=== PATIENT | female | born 2000 | race Hispanic/Latino ===

== ENCOUNTER 2022-10-14 11:43 | Emergency (ER) | payer BC, MEDICAID, SELFPAY ==
--- NOTE | ~2022-10-14 | XR_ITS ---
AP view of the pelvis and AP and lateral views of the right hip Clinical history: Pain Findings: No acute fracture or dislocation is seen. Osseous alignment is anatomic. Bilateral hip and SI joint spaces are preserved. Soft tissues are unremarkable. Impression: No significant abnormality is seen. Reviewed, dictated and finalized at [facility]. OR TECHNICIAN Impression: No significant abnormality is seen.
--- NOTE | ~2022-10-14 | XR_ITS ---
Lumbosacral Spine: AP, oblique, and lateral views Clinical History: Pain Findings: The normal lordotic curve is maintained. The vertebral bodies and posterior elements are i ntact. The intervertebral disc spaces are preserved. The sacroiliac joints are normally outlined. Impression: No significant abnormality. Reviewed, dictated and finalized at [facility]. N ANNOUNCER Impression: No significant abnormality.
[2022-10-14 11:48] VITALS: BP 109/56; PULSE 103; RESP 16; TEMP 36.8; O2SAT 100
--- NOTE | 2022-10-14 12:49 | ED.GENADULT ---
HPI - General Adult General Chief complaint: Extremity Injury, Lower Stated complaint: right hip pain after fall 2 days ago Time Seen by Provider: 10/14/22 12:24 Source: RN notes reviewed History of Present Illness HPI narrative: Patient presents emergency department from home for fall. Patient states symptoms occurred on the evening of October 11 patient states that she is coming on the stairs when her dog jumped up behind her causing her to fall down 3 stairs states that she hit her right hip on a bookshelf since that time she had pain in the right lateral hip as well as in the right buttocks and lower back states she has been able to ambulate she denies striking her head or any loss of consciousness she denies any chest pain shortness of breath abdominal pain nausea vomiting numbness or tingling in the extremities pain in the knee or ankle or any other symptoms states she is not taking thing for pain Related Data Allergies Allergy/AdvReac Type Severity Reaction Status Date / Time shrimp Allergy Anaphylaxis Verified 10/14/22 13:11 Sulfa (Sulfonamide Allergy Hives Verified 10/14/22 13:11 Antibiotics) Review of Systems Review of Systems: Gen.: Denies fevers or chills Eyes: Denies eye pain or visual change ENT: Denies facial Respiratory: Denies shortness of breath CV: Denies chest pain GI: Denies abdominal pain nausea, emesis Musculoskeletal: See HPI Neuro: Denies headache or loss of consciousness Skin: Denies rash Except as documented, all other systems reviewed and negative PMFSH Past Medical History Medical History (Updated 10/14/22 @ 13:34 by Rishi Cali DO) Patient denies significant medical history Social History Social History (Updated 10/14/22 @ 12:51 by Rishi Cali DO) Smoking status: Never smoker Exam Narrative: APPEARANCE: Well appearing, no apparent distress, well-nourished. HEENT: normocephalic atraumtaic. Nares patent, oral mucosa moist EYES: PERRL NECK: Supple. No midline tenderness to palpation. Full range of motion without pain RESPIRATORY: No respiratory distress. Clear to auscultation bilaterally CARDIOVASCULAR: Regular rate and rhythm without murmurs rubs or gallops. ABDOMINAL: Soft, nontender, nondistended, no rebound or guarding MUSCULOSKELETAl: Moves all extremities. No tenderness to palpation of bilateral upper and lower extremities. No clubbing cyanosis or edema Back: No midline thoracic or lumbar tenderness to palpation tender palpation of the right paravertebral muscles L4-5, NEURO: Awake and alert ?3. Follows commands. Speech normal. No focal deficits. Muscle strength 5 out of 5 bilateral upper and lower extremities SKIN:: Warm, dry. Normal Color Course Course Emergency Course: Discussed with patient results of workup and diagnosis. Discussed need for follow-up with primary care, proper use of medication, and reasons to return to the emergency department. Patient understands and agrees to current treatment plan Vital Signs Vital signs: Vital Signs Temperature 98.2 F 10/14/22 11:48 Pulse Rate 103 H 10/14/22 11:48 Respiratory Rate 16 10/14/22 11:48 Blood Pressure 109/56 L 10/14/22 11:48 Pulse Oximetry 100 10/14/22 11:48 Temperature 98.2 F 10/14/22 11:48 Pulse Rate 103 H 10/14/22 11:48 Respiratory Rate 16 10/14/22 11:48 Blood Pressure 109/56 L 10/14/22 11:48 Pulse Oximetry 100 10/14/22 11:48 Medical Decision Making MDM Narrative Medical decision making narrative: Patient?s injury is consistent with muscular skeletal etiology. No signs of neurologic or vascular compromise to exam. Compartments are soft without signs of compartment syndrome. Pain is consistent with exam and injury Vital Signs Vital Signs: Vital Signs Temperature 98.2 F 10/14/22 11:48 Pulse Rate 103 H 10/14/22 11:48 Respiratory Rate 16 10/14/22 11:48 Blood Pressure 109/56 L 10/14/22 11:48 Pulse Oximetry 100 10/14/22 11:48 Tem
[2022-10-14] MEDS: IBUPROFEN 600 MG TABLET PO (13:12)
== END 2022-10-14 13:55 | disposition home or self-care (01) ==
PROVIDERS: Emergency Provider Emergency Medicine
DX: S70.01XA Contusion of right hip, initial encounter (principal); S39.92XA Unspecified injury of lower back, initial encounter; W10.9XXA Fall (on) (from) unspecified stairs and steps, initial encounter
CPT/HCPCS: 72110; 73502; 81025; 99284; A9270